=== PATIENT | male | born 1950 | race Caucasian/White ===

== ENCOUNTER → 2021-01-18 | Outpatient (CLI) | payer MEDICARE, OTHER ==
[~2021-01-18] MED LIST: AMLODIPINE BESY10 MG PO; ASPIR 8181 MG PO; CHLORTHALIDONE25 MG PO; IBUPROFEN600 MG PO; IMDUR ER TAB 3030 MG PO; KEFLEX500 MG PO; LOPRESSOR 25 MG25 MG PO; LORTAB 5-325 M1 EACH PO; NITROGLYCERIN0.4 MG SL; REQUIP1 MG PO; ROPINIROLE HCL1 MG PO; SOMA350 MG PO; TYLENOL 325MG325 MG PO; ULTRAM50 MG PO; VITAMIN C 500500 MG PO; VITAMIN D31000 UNIT PO; ZYRTEC-D TABLE1 EACH PO; [UNRECOGNIZED DRUG - OTHER] PO
== END ==
LOC: KOH-I 13:11
DX: M50.121 Cervical disc disorder at C4-C5 level with radiculopathy (principal); R20.0 Anesthesia of skin; R20.2 Paresthesia of skin; M48.02 Spinal stenosis, cervical region
CPT/HCPCS: 72040

== ENCOUNTER → 2021-07-15 | Outpatient (CLI) | payer MEDICARE, OTHER ==
[2021-07-15 09:01] LABS: HEMOGLOBIN 14.6 gm/dl (14.0-17.5); RED BLOOD COUNT 4.72 M/UL (4.20-5.50); WHITE BLOOD COUNT 8.8 K/UL (4.5-11.0)
[2021-07-15 09:35] LABS: BUN/CREATININE RATIO 23 (0-10)
[2021-07-16 08:13] LABS: RHEUMATOID ARTHRITIS FACTOR <10.0 IU/mL (0.0-13.9); VITAMIN D, 25-HYDROXY 67.5 ng/mL (30.0-100.0)
== END ==
LOC: LAB 06:41
PROVIDERS: Family Medicine
DX: Z12.5 Encounter for screening for malignant neoplasm of prostate (principal); Z13.828 Encounter for screening for other musculoskeletal disorder; Z13.89 Encounter for screening for other disorder; E78.5 Hyperlipidemia, unspecified; I10 Essential (primary) hypertension; E55.9 Vitamin D deficiency, unspecified
CPT/HCPCS: 36415; 80053; 80061; 84439; 84443; 84550; 85027; 85652; 86038; 86431; G0103

== ENCOUNTER → 2021-09-24 | Outpatient (CLI) | payer MEDICARE, OTHER | LOC: EXRD 14:01 | DX: M79.673 Pain in unspecified foot (principal); M25.50 Pain in unspecified joint | CPT/HCPCS: 73630 ==

== ENCOUNTER → 2022-05-14 | Outpatient (CLI) | payer MEDICARE, OTHER | LOC: KOH-I 11:51 | DX: M54.50 Low back pain, unspecified (principal); M47.816 Spondylosis without myelopathy or radiculopathy, lumbar region | CPT/HCPCS: 72100 ==

== ENCOUNTER 2022-07-14 20:10 | Emergency (ER) | payer MEDICARE, OTHER | END 2022-07-14 21:45 | disposition left against medical advice (07) | LOC: ER1 20:10 | DX: Z53.21 Procedure and treatment not carried out due to patient leaving prior to being seen by health care provider (principal) ==